=== PATIENT | female | born 1985 | race Hispanic/Latino ===

== ENCOUNTER 2018-06-28 10:00 | Emergency (ER) | payer OTHER ==
[2018-06-28 11:06] LABS: BASOPHILS % (AUTO) 0.8 % (0.0-5.0); EOSINOPHILS % (AUTO) 0.8 % (0.0-8.0); HEMATOCRIT 39.8 % (36-48); LYMPHOCYTES % (AUTO) 26.7 % (21.0-51.0); MEAN CORPUSCULAR HEMOGLOBIN 31.9 pg (27.0-33.0); MEAN CORPUSCULAR HGB CONC 33.7 g/dL (32.0-36.0); MEAN CORPUSCULAR VOLUME 94.7 fL (79-99); MONOCYTES % (AUTO) 7.5 % (3.0-13.0); NEUTROPHILS % (AUTO) 64.2 % (40.0-77.0); PLATELET COUNT (AUTO) 236 K/uL (130-400); RED CELL DISTRIBUTION WIDTH 12.6 % (11.0-15.5); WHITE BLOOD COUNT (AUTO) 6.9 K/uL (4.8-10.8)
[2018-06-28 11:08] LABS: APPEARANCE,URINE Cloudy (CLEAR); BILIRUBIN,URINE Negative (NEGATIVE); COLOR,URINE Yellow (YELLOW); GLUCOSE, URINE (UA) Negative (NEGATIVE); KETONES,URINE Negative (NEGATIVE); LEUKOCYTE ESTERASE ,URINE Moderate (NEGATIVE); NITRATE,URINE Negative (NEGATIVE); OCCULT BLOOD,URINE Large (NEGATIVE); PROTEIN,URINE Negative (NEGATIVE)
[2018-06-28 11:09] LABS: CREATININE 0.6 mg/dL (0.5-1.5)
[2018-06-28 11:34] LABS: BACTERIA,URINE Few /HPF (None Seen); MUCUS,URINE Moderate LPF (None Seen); RBC,URINE 0-1 /HPF (0-1); SQUAMOUS EPITHELIAL CELL,UR Moderate /HPF (0-2)
== END 2018-06-28 13:23 | disposition home or self-care (01) ==
LOC: EDH 10:00
DX: O20.0 Threatened abortion (principal); Z3A.01 Less than 8 weeks gestation of pregnancy
CPT/HCPCS: 36415; 76817; 80048; 81001; 84702; 85025; 86900; 86901

== ENCOUNTER 2023-10-28 07:55 | Emergency (ER) | payer MEDICAID ==
[~2023-10-28] VITALS: Ht 157.5 cm; Wt 90.7 kg
[2023-10-28 08:33] LABS: APPEARANCE,URINE CLOUDY (CLEAR); BILIRUBIN,URINE NEGATIVE (NEGATIVE); COLOR,URINE YELLOW (YELLOW); GLUCOSE, URINE (UA) NEGATIVE (NEGATIVE); KETONES,URINE NEGATIVE (NEGATIVE); LEUKOCYTE ESTERASE ,URINE NEGATIVE Leu/uL (NEGATIVE); NITRATE,URINE NEGATIVE (NEGATIVE); OCCULT BLOOD,URINE NEGATIVE (NEGATIVE); PROTEIN,URINE NEGATIVE (NEGATIVE); UROBILINOGEN,URINE 0.2 mg/dL (0.2-1.0)
[2023-10-28 08:39] LABS: HEMATOCRIT 37.9 % (36-48); MEAN CORPUSCULAR HGB CONC 34.8 g/dL (32.0-36.0); RED BLOOD CELL COUNT(AUTO) 4.26 MIL/uL (4.00-5.50); RED CELL DISTRIBUTION WIDTH 12.9 % (11.0-15.5); WHITE BLOOD COUNT (AUTO) 7.4 K/uL (4.8-10.8)
[2023-10-28 08:42] LABS: ADD UA MICROSCOPIC NO
[2023-10-28 08:49] LABS: CREATININE 0.5 mg/dL (0.5-1.0); POTASSIUM 3.7 mmol/L (3.5-5.1)
[2023-10-28 08:53] LABS: ALBUMIN 3.8 g/dL (3.5-5.0); BILIRUBIN,TOTAL 0.8 mg/dL (0.2-1.0); TOTAL PROTEIN, SERUM 7.9 g/dL (6.0-8.3)
[2023-10-28] MEDS: DIAZEPAM 5 MG/ML 2 ML SYG IVP ONE (08:53)
[2023-10-28] MEDS: KETOROLAC 15MG/ML VIAL (15MG/ML) IV ONE (08:53)
[2023-10-28 09:29] VITALS: BP 115/82; PULSE 75; RESP 18; O2SAT 99
== END 2023-10-28 09:44 | disposition home or self-care (01) ==
LOC: EDH 07:55
DX: S29.012A Strain of muscle and tendon of back wall of thorax, initial encounter (principal); R07.89 Other chest pain; Z98.890 Other specified postprocedural states; W18.39XA Other fall on same level, initial encounter; Y93.89 Activity, other specified; Y92.89 Other specified places as the place of occurrence of the external cause; Y99.8 Other external cause status
CPT/HCPCS: 99285; 96374; 71045; 96375; 82550; 84484 ×2; 80053; 83690; 85027; 81003; 36415; 93005; J3360; J1885

== ENCOUNTER → 2025-01-19 | Outpatient (CLI) | payer MEDICAID ==
[~2025-01-19] MED LIST: GADOTERATE MEGLUMINE 10 MMOL/20 ML VIAL IV ONE
--- NOTE | 2025-01-20 08:22 | HMCIMG ---
EXAMINATION: MRI OF THE ABDOMEN WITHOUT AND WITH CONTRAST. CLINICAL HISTORY: Abnormal findings on diagnostic imaging of other parts of digestive. COMPARISON: None. TECHNIQUE: Multiplanar, multisequence MR images of the abdomen are submitted. Post contrast images were obtained after administration of IV contrast. FINDINGS: The liver is normal in caliber. Intrahepatic bile ducts are normal in caliber. The common bile duct is normal in caliber throughout its course without evidence of choledocholithiasis. The gallbladder is normal in caliber with minimal wall thickening of the fundus and intraluminal sludge. No calculus. There is a non-enhancing, thin, septated, T1 hypointense and T2 hyperintense cystic lesion in the mid-body of the pancreas measuring 1.0 x 2.2 cm. Rest of the pancreas appears normal in caliber and signal intensity. No peripancreatic fat plane stranding. The main pancreatic duct is normal in caliber. The spleen is normal in caliber and signal intensity. There is no focal abnormality appreciated within the spleen. There is no focal abnormality appreciated within the adrenal glands. The kidneys are normal in caliber and signal intensity with normal enhancement. The included gastrointestinal tract is normal in caliber and signal intensity. There is no ascites. There is no lymphadenopathy. IMPRESSION: Minimal wall thickening of the fundus of the gallbladder and intraluminal sludge - adenomyomatosis. 1.0 x 2,2 ???cm, non-enhancing, thin, septated, T1 hypointense and T2 hyperintense cystic lesion in the mid-body of the pancreas ??? 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 /[place]
== END | disposition home or self-care (01) ==
LOC: RAH 10:59
PROVIDERS: ATTEND Internal Medicine Gastroenterology
DX: K82.8 Other specified diseases of gallbladder (principal); K86.2 Cyst of pancreas; N80.03 Adenomyosis of the uterus; R93.3 Abnormal findings on diagnostic imaging of other parts of digestive tract
CPT/HCPCS: 74183; A9575